=== PATIENT | female | born 1995 | race American Indian/Alaskan Native ===

== ENCOUNTER 2020-12-08 15:08 | Emergency (ER) | payer OTHER ==
[2020-12-08 15:36] VITALS: BP 118/79; PULSE 65
[2020-12-08] MEDS ORDERED: Cyclobenzaprine 10 MG Tab PO ONE (16:05)
[2020-12-08] MEDS ORDERED: Ketorolac 30 MG/ML SDV IM ONE (16:05)
--- NOTE | 2020-12-08 16:26 | CR ---
PROCEDURE INFORMATION: Exam: XR Chest, 2 Views Exam date and time: 12/08/2020 4:10 PM Age: 25 years old Clinical indication: Other: Right scapular pain; Additional info: Pleuritic pain, RT scapular pain TECHNIQUE: Imaging protocol: XR of the chest Views: 2 views. COMPARISON: No relevant prior studies available. FINDINGS: Lungs: Unremarkable. No consolidation. Pleural spaces: Unremarkable. No pleural effusion. No pneumothorax. Heart/Mediastinum: Unremarkable. No cardiomegaly. Bones/joints: Unremarkable. IMPRESSION: No acute findings.
--- NOTE | 2020-12-08 16:27 | CR ---
PROCEDURE INFORMATION: Exam: XR Right Scapula Exam date and time: 12/08/2020 4:13 PM Age: 25 years old Clinical indication: Pain; Other: RT scapula; Additional info: Right scapular pain TECHNIQUE: Imaging protocol: XR Right scapula, complete. COMPARISON: No relevant prior studies available. FINDINGS: Bones/joints: There is no evidence of acute fracture. There is no evidence of joint malalignment or dislocation. Soft tissues: There are no soft tissue masses or fluid collections. IMPRESSION: 1. No evidence of acute fracture. 2. No evidence of acute dislocation.
--- NOTE | 2020-12-08 17:07 | EDM.PDOC ---
Scribed by Pati August 12/08/20 2423 for Tiffanie Krishnan MD ED HPI GENERAL MEDICAL PROBLEM - General Chief Complaint: Upper Extremity Injury/Pain Stated Complaint: SEVERE RIGHT SHOULDER PAIN Time Seen by Provider: 12/08/20 15:48 Source of Information: Reports: Patient, RN, RN Notes Reviewed History Limitations: Reports: No Limitations - History of Present Illness INITIAL COMMENTS - FREE TEXT/NARRATIVE: Patient presents to ED by POV. Patient states she woke this morning with pain and stiffness to posterior right shoulder, just lateral to spine. Rates pain 10/10, unrelieved by Tylenol at 10:00 A.M. today. No history of falls. Patient states may have 'slept funny'. Patient unable to move arm without pain and grimacing. Any movement of the shoulder causes pain and grimacing. Onset: Today Duration: Getting Worse Location: Reports: Other (lateral shoulder) Quality: Reports: Ache Severity: Severe Improves with: Reports: None Worsens with: Reports: None Associated Symptoms: Reports: No Other Symptoms Treatments ICU STAFF NURSE: Reports: Acetaminophen RIGHT POSTERIOR SHOULDER Pain Score (Numeric/FACES): 10 - Related Data Allergies Allergy/AdvReac Type Severity Reaction Status Date / Time No Known Allergies Allergy Verified 12/08/20 15:38 Home Meds: Home Meds . [Unable to Verify Home Med List] 12/08/20 [History] Past Medical History - Past Health History Medical/Surgical History: Denies Medical/Surgical History HEENT History: Reports: None Cardiovascular History: Reports: None Respiratory History: Reports: None Gastrointestinal History: Reports: None Genitourinary History: Reports: None CMV DRIVER History: Reports: None Musculoskeletal History: Reports: None Neurological History: Reports: None Psychiatric History: Reports: Depression Endocrine/Metabolic History: Reports: None Hematologic History: Reports: None Immunologic History: Reports: None Oncologic (Cancer) History: Reports: None Dermatologic History: Reports: None - Infectious Disease History Infectious Disease History: Reports: None Social & Family History - Family History Family Medical History: No Pertinent Family History - Caffeine Use Caffeine Use: Reports: Tea Review of Systems - Review of Systems Review Of Systems: Comprehensive ROS is negative, except as noted in HPI. ED EXAM, GENERAL - Physical Exam Exam: See Below Exam Limited By: No Limitations General Appearance: Alert, WD/WN, No Apparent Distress, Obese Throat/Mouth: Normal Voice, No Airway Compromise Head: Atraumatic, Normocephalic Neck: Normal Inspection, Supple, Non-Tender, Full Range of Motion Respiratory/Chest: No Respiratory Distress, Lungs Clear, Normal Breath Sounds, No Accessory Muscle Use, Chest Non-Tender. No: Crackles, Rales, Rhonchi, Wheezing, Stridor Cardiovascular: Normal Peripheral Pulses, Regular Rate, Rhythm, No Edema, No Gallop, No JVD, No Murmur, No Rub GI/Abdominal: Normal Bowel Sounds, Soft, Non-Tender Back Exam: Decreased Range of Motion (Rt scapula/shoulder), Muscle Spasm (right thoracic and trapezius back), Paraspinal Tenderness. No: CVA Tenderness (L), CVA Tenderness (R), Vertebral Tenderness Extremities: Non-Tender, No Pedal Edema, Normal Capillary Refill, Limited Range of Motion (Rt shoulder due to Rt scapular pain). No: Joint Swelling, Arm Pain, Increased Warmth, Pallor, Redness Neurological: Alert, Oriented, CN II-XII Intact, Normal Cognition, Normal Gait, No Motor/Sensory Deficits Psychiatric: Normal Affect, Normal Mood Skin Exam: Warm, Dry, Intact, Normal Color, No Rash Course - Vital Signs Last Recorded V/S: Last Vital Signs Temp 97.0 F 12/08/20 15:34 Pulse 65 12/08/20 15:34 Resp 18 12/08/20 15:34 BP 118/79 12/08/20 15:34 Pulse Ox 99 12/08/20 15:34 - Orders/Labs/Meds Labs: Laboratory Tests 12/08/20 12/08/20 12/08/20 Range/Units 16:24 16:24 16:24 WBC 9.6 (5.0-10.0) 10^3/uL RBC 5.18 (4.2-5.4) 10^6/uL Hgb 13.4 (12.0-16.0) g/dL Hct 41.5 (37.0-47.0) % MCV 80.1 (80-100) fL MCH 25.9 L (27.0-34.0) pg MCHC 32.3 L (33.0-35.0) g/dL Plt Count 358 (150-450) 10^3/uL Neut % (Auto) 52.5 (42.2-75.2) % Lymph % (Auto) 35.8 (20.5-50.1) % Mccone % (Auto) 6.8 (2-8) % Eos % (Auto) 4.5 H (1.0-3.0) % Baso % (Auto) 0.4 (0.0-1.0) % D-Dimer, Quantitative < 100 (0-400) ng/mL HCG, Qual Negative Meds: Medications Discontinued Medications Generic Name Dose Route Start Last Admin Trade Name Freq PRN Reason Stop Dose Admin Cyclobenzaprine HCl 10 mg 12/08/20 16:05 12/08/20 16:39 Flexeril PO 12/08/20 16:06 10 mg ONETIME ONE Administration Ketorolac Tromethamine 60 mg 12/08/20 16:05 12/08/20 16:40 Toradol IM 12/08/20 16:06 60 mg ONETIME ONE Administration - Radiology Interpretation Free Text/Narrative:: [facility] Final Radiology Report Call: [phone] assistance Online chat: [email or web address] Name: JACKELINE CHRISTY Age: 25Years F Date: 12/08/2020 SSN: -- : 1995 Study: CR CHEST 2V Requesting Physician: TIFFANIE KRISHNAN Images: 2 Addl Studies: Provided Clinical History: pleuritic pain, Rt scapular pain Contrast: Contrast Medium: Contrast Amount: Contrast Method: CONFIDENTIALITY STATEMENT This report is intended only for use by the referring physician, and only in accordance with law. If you received this in error, call [phone]. Page 1 of 1 PROCEDURE INFORMATION: Exam: XR Chest, 2 Views Exam date and time: 12/08/2020 4:10 PM Age: 25 years old Clinical indication: Other: Right scapular pain; Additional info: Pleuritic pain, RT scapular pain TECHNIQUE: Imaging protocol: XR of the chest Views: 2 views. COMPARISON: No relevant prior studies available. FINDINGS: Lungs: Unremarkable. No consolidation. Pleural spaces: Unremarkable. No pleural effusion. No pneumothorax. Heart/Mediastinum: Unremarkable. No cardiomegaly. Bones/joints: Unremarkable. IMPRESSION: No acute findings. Thank you for allowing us to participate in the care of your patient. Dictated and Authenticated by: Daniel Hays DO 12/08/2020 4:26 PM Central Time ([place] & [place]) [facility] [place] [facility] Final Radiology Report Call: [phone] assistance Online chat: [email or web address] Name: JACKELINE CHRISTY Age: 25Years F Date: 12/08/2020 SSN: -- : 1995 Study: CR SCAPULA RT Requesting Physician: TIFFANIE KRISHNAN Images: 2 Addl Studies: Provided Clinical History: right scapular pain Contrast: Contrast Medium: Contrast Amount: Contrast Method: CONFIDENTIALITY STATEMENT This report is intended only for use by the referring physician, and only in accordance with law. If you received this in error, call [phone]. Page 1 of 1 PROCEDURE INFORMATION: Exam: XR Right Scapula Exam date and time: 12/08/2020 4:13 PM Age: 25 years old Clinical indication: Pain; Other: RT scapula; Additional info: Right scapular pain TECHNIQUE: Imaging protocol: XR Right scapula, complete. COMPARISON: No relevant prior studies available. FINDINGS: Bones/joints: There is no evidence of acute fracture. There is no evidence of joint malalignment or dislocation. Soft tissues: There are no soft tissue masses or fluid collections. IMPRESSION: 1. No evidence of acute fracture. 2. No evidence of acute dislocation. Thank you for allowing us to participate in the care of your patient. Dictated and Authenticated by: Daniel Hays DO 12/08/2020 4:27 PM Central Time ([place] & [place]) Departure - Departure Time of Disposition: 17:01 Disposition: Home, Self-Care 01 Condition: Good Clinical Impression: Pain of right scapula Acute thoracic back pain Qualifiers: Back pain laterality: right Qualified Code(s): M54.6 - Pain in thoracic spine - Discharge Information *PRESCRIPTION DRUG MONITORING PROGRAM REVIEWED*: Not Applicable *COPY OF PRESCRIPTION DRUG MONITORING REPORT IN PATIENT ROGER: Not Applicable Instructions: Shoulder Pain, Musculoskeletal Pain Forms: ED Department Discharge Additional Instructions: Rx: Naprosyn 500mg Rx: Cyclobenzaprine 10mg Alternate heat/hot packs, and ice packs to area of pain. Follow up in clinic if not improving in 4 to 5 days. Sepsis Event Note (ED) - Evaluation Sepsis Screening Result: No Definite Risk - Focused Exam Vital Signs: Vital Signs Temp Pulse Resp BP Pulse Ox 12/08/20 15:34 97.0 F 65 18 118/79 99 I have read and agree with the documentation that has been completed regarding this visit. By signing this record, I attest that the documentation was completed in my physical presence and is an accurate record of the encounter.
== END 2020-12-08 17:15 | disposition home or self-care (01) ==
LOC: DL.ED 15:08
DX: M25.511 Pain in right shoulder (principal); M54.6 Pain in thoracic spine
CPT/HCPCS: 36415; 71046; 73010; 84703; 85025; 85379; 96372; 99283; A9270; J1885